=== PATIENT | female | born 1955 | race Caucasian/White ===

== ENCOUNTER 2017-06-01 19:23 | Emergency (ER) | payer OTHER ==
[~2017-06-01] VITALS: Ht 167.6 cm; Wt 101.2 kg
--- OUTSIDE RECORDS SUMMARY | ~2017-06-01 | XMS | Clinical Summary ---
Demographics + + + | Address | [address] | | | [place] [address] | + + + | Home Phone | | + + + | Preferred Language | Unknown | + + + | Marital Status | | + + + | Hindu Affiliation | NON | + + + | Race | White | + + + | Ethnic Group | Not or | + + + Author + + + | Author | [facility] | + + + | Organization | [facility] | + + + | Address | Unknown | + + + | Phone | Unavailable | + + + Support +------+ +---------+ + | Name | Relationship | Address | Phone | +------+ +---------+ + ECON | Unknown | | +------+ +---------+ + Care Team Providers + +------+ + | Care Shopping Centre Manager Name | Role | Phone | + +------+ + PP | Unavailable | + +------+ + Source Comments AYESHA is fully live on both [facility] and [facility] Allergies No Known Allergies Current Medications + + + +---------+------+------+-------+ | Prescription | Sig. | Disp. | Refills | Star | End | Statu | | | | | | t | Date | s | | | | | | Date | | | + + + +---------+------+------+-------+ | lisinopril 20 mg | Take 20 mg by mouth | | | | | Activ | | Oral Tablet | once daily. | | | | | e | + + + +---------+------+------+-------+ | THYROID,PORK | Take by mouth. | | | | | Activ | | (ARMOUR THYROID | | | | | | e | | ORAL) | | | | | | | + + + +---------+------+------+-------+ | aspirin 325 mg | Take 1 Tab by mouth | 30 Tab | 5 | 12/0 | | Activ | | Oral Tablet | once daily. Take 5 | | | 6/20 | | e | | | full days before | | | 10 | | | | | your procedure and | | | | | | | | the morning of your | | | | | | | | procedure. | | | | | | + + + +---------+------+------+-------+ | MULTIVITAMIN ORAL | Take by mouth. | | | | | Activ | | | | | | | | e | + + + +---------+------+------+-------+ | OMEGA-3 FATTY | Take by mouth. | | | | | Activ | | ACIDS (FISH OIL | | | | | | e | | ORAL) | | | | | | | + + + +---------+------+------+-------+ | LYSINE ORAL | Take by mouth. | | | | | Activ | | | | | | | | e | + + + +---------+------+------+-------+ | clopidogrel | Take 1 Tab by mouth | 30 Tab | 2 | 12/0 | | Activ | | (PLAVIX) 75 mg Oral | once daily. Take 600 | | | 8/20 | | e | | Tablet | mg (8 tablets) | | | 10 | | | | | today and 75 mg the | | | | | | | | morning of your | | | | | | | | procedure. | | | | | | + + + +---------+------+------+-------+ | oxyCODONE, | Take 1 Tab by mouth | 20 Tab | 0 | 12/0 | | Activ | | immediate release, 5 | every six hours as | | | 8/20 | | e | | mg Oral Tablet | needed. | | | 10 | | | + + + +---------+------+------+-------+ | acetaminophen 325 | Take 1-2 Tabs by | 30 Tab | 0 | 12/0 | | Activ | | mg Oral Tablet | mouth every four | | | 8/20 | | e | | | hours as needed. | | | 10 | | | + + + +---------+------+------+-------+ | dexamethasone 4 mg | Take by mouth. If | 5 Tab | 0 | 12/0 | | Activ | | Oral Tablet | significant headache | | | 8/20 | | e | | | pain occurs take 2 | | | 10 | | | | | tabs by mouth on day | | | | | | | | #1, 1.5 tabs by | | | | | | | | mouth on day #2, 1 | | | | | | | | tab by mouth on day | | | | | | | | #3, and 0.5 tab by | | | | | | | | mouth on day #4, | | | | | | | | then stop | | | | | | + + + +---------+------+------+-------+ Active Problems + + + | Problem | Noted Date | + + + | ERRONEOUS ENCOUNTER - NO DIAGNOSIS | 04/23/2010 | + + + | Bruit | 12/27/2009 | + + + Social History + + + +--------+------+ | Tobacco Use | Types | Packs/Day | Years | Date | | | | | Used | | + + + +--------+------+ | Current Every Day | Cigarettes | 0.5 | 40 | | | Smoker | | | | | + + + +--------+------+ + +---+---+---+ | Smokeless Tobacco: | | | | | Never Used | | | | + +---+---+---+ + + +---------+ + | Alcohol Use | Drinks/We | oz/Week | Comments | | | ek | | | + + +---------+ + | Yes | 4 | 2.0 | | | | Standard | | | | | drinks or | | | | | | | | | | equivalen | | | | | t | | | + + +---------+ + + + + | Sex Assigned at | Date Recorded | | | | + + + | Not on file | | + + + Last Filed Vital Signs + + + + | Vital Sign | Reading | Time Taken | + + + + | Blood Pressure | 126/75 | 05/30/2010 11:00 AM PST | + + + + | Pulse | 61 | 05/30/2010 11:00 AM PST | + + + + | Temperature | 36.9 C (98.4 F) | 05/30/2010 9:00 AM PST | + + + + | Respiratory Rate | 15 | 05/30/2010 11:00 AM PST | + + + + | Oxygen Saturation | 96% | 05/30/2010 11:00 AM PST | + + + + | Inhaled Oxygen | - | - | | Concentration | | | + + + + | Weight | 97.7 kg (215 lb 6.2 | 05/29/2010 12:00 PM PST | | | oz) | | + + + + | Height | 165.1 cm (5' 5") | 05/29/2010 7:00 AM PST | + + + + | Body Mass Index | 35.84 | 05/29/2010 12:00 PM PST | + + + + Plan of Treatment + + + + + | Health Maintenance | Due Date | Last Done | Comments | + + + + + | INFLUENZA VACCINE | | | | | (FLU SHOT) | 7 | | | + + + + + Results Not on filefrom Last 3 Months
[~2017-06-01 19:23] MED LIST: ARMOUR THYROID15 MG PO; ASPIR-TRIN325 MG PO; DAILY MULTIPLE1 EACH PO; FISH OIL 1,0001 EAC1 PO; LISINOPRIL20 MG PO; VITAMIN C100 MG PO; VITAMIN D1000 UNIT PO
[2017-06-01] MEDS ORDERED: PERCOCET 5-3251 EACH PO (22:17)
[2017-06-01] MEDS ORDERED: FLOMAX0.4 MG PO (22:17)
== END 2017-06-01 22:30 | disposition home or self-care (01) ==
LOC: ED 19:23
DX: N13.2 Hydronephrosis with renal and ureteral calculous obstruction (principal); E03.9 Hypothyroidism, unspecified; I10 Essential (primary) hypertension; Z90.710 Acquired absence of both cervix and uterus; Z90.49 Acquired absence of other specified parts of digestive tract; Z88.5 Allergy status to narcotic agent; Z79.82 Long term (current) use of aspirin; Z79.899 Other long term (current) drug therapy
CPT/HCPCS: 74176; 80053; 81001; 83036; 83690; 85025; 96361; 96374; 96375; 99284; J1885; J2405; J7030

== ENCOUNTER 2017-06-03 17:24 | Day surgery (SDC) | payer OTHER ==
[~2017-06-03] VITALS: Ht 167.6 cm; Wt 108.9 kg
--- NOTE | ~2017-06-03 | OR ---
[facility] [address], [place] [address] Draft DATE OF OPERATION: 06/03/2017 SURGEON: Winston Villarreal MD PREOPERATIVE DIAGNOSES: 1. Right ureterolithiasis. 2. Severe right-sided flank pain with nausea and vomiting. POSTOPERATIVE DIAGNOSES: 1. Right ureterolithiasis. 2. Severe right-sided flank pain with nausea and vomiting. NAMES OF PROCEDURES: 1. Diagnostic cystoscopy with right retrograde pyelogram. 2. Right semi-rigid ureteroscopy with laser lithotripsy and basket extraction of ureteral stone fragments. ANESTHESIA: General. ESTIMATED BLOOD LOSS: Minimal. COMPLICATIONS: None. SPECIMENS: Fragments of right ureteral calculus, sent to the lab for stone analysis. DRAINS: None. INDICATIONS FOR PROCEDURE: Ms. Peters is a very pleasant 62-year-old female with no previous history of nephrolithiasis, who presented to her primary care physician's office with a 2 to 3-day history of severe right-sided flank pain, nausea, and vomiting. She had been seen in the emergency department on June 01, where she was found to have a 5 mm distal right ureteral calculus with associated moderate hydronephrosis. She presented to clinic today in tears and still experiencing severe right-sided flank pain with nausea and vomiting. She was unable to tolerate p.o. intake. However, she denied any fevers or chills. After PATIENT NAME: ZAFAR PETERS OPERATIVE REPORT DATE OF : 59 PHYSICIAN: WINSTON VILLARREAL MD REPORT #: [id number] REPORT IS CONFIDENTIAL AND NOT TO BE RELEASED WITHOUT AUTHORIZATION [facility] [address], [place] [address] Draft discussing her various treatment options, the patient agreed to undergo semi-urgent right ureteroscopy, laser lithotripsy, and basket extraction of her stone. After discussion of the risks and benefits of the procedure, the patient agreed to proceed. FINDINGS: 1. On cystoscopy, there was no evidence of any suspicious masses, lesions, or stones. Bilateral ureteral orifices are in their normal anatomic location. 2. Right retrograde pyelogram revealed a round filling defect in the distal right ureter, consistent with the patient's known 5 mm stone. 3. Semi-rigid ureteroscopy was performed, where the stone was located in the distal right ureter; it was fragmented using a frequency of 8 hertz and a power of 0.8 joules. The stone fragmented into four pieces, which were all extracted from the ureter without difficulty. DESCRIPTION OF PROCEDURE: After informed consent was obtained, the patient was taken back to the operating room. She was transferred from the [facility] to the operative room table, where general anesthesia was induced. She was placed in the dorsal lithotomy position and genitalia prepped and draped in standard sterile fashion. Using a 30 degree lens on 23-Slovenian introducer, a rigid cystoscope was inserted through the urethra into her bladder under direct visualization. Pain endoscopic views of the bladder were then obtained. Please see above findings. Attention was turned to the right ureteral orifice. A cone-tipped catheter was advanced to the right ureteral orifice and a right retrograde pyelogram was performed. Please see above findings. I then advanced a semi-rigid ureteroscope through the urethra into the bladder and up into the right distal ureter. Right diagnostic ureteroscopy was then performed. I was able to see the stone fairly immediately and it was fragmented into four smaller fragments using the holmium laser as described above. All four fragments were then extracted from the ureter and temporarily placed within the bladder, where later they were extracted from the bladder via the cystoscope. Once I was satisfied that all the stone fragments had been removed. I removed the ureteral scope and reinserted the cystoscope, where as stated above the stone fragments were extracted. The cystoscope was then removed and the procedure was terminated. The patient tolerated the procedure well without any complication. She will now be transferred to the postanesthesia care unit in stable condition. DISPOSITION: Zafar will be discharged to home later this evening in stable condition. I discussed the details of her surgery with her and answered all of his questions. I explained to him that she does not have an indwelling stent and will therefore, not require stent removal in the future. However, she will be asked to contact the clinic to make a followup appointment in approximately 2 to 3 weeks to discuss her stone analysis results. She will be sent home today with Bactrim double strength one tab p.o. b.i.d. for a total PATIENT NAME: ZAFAR PETERS FULTON OPERATIVE REPORT DATE OF : 59 PHYSICIAN: WINSTON VILLARREAL MD REPORT #: [id number] REPORT IS CONFIDENTIAL AND NOT TO BE RELEASED WITHOUT AUTHORIZATION [address] [address] Draft of 5 days. MD JOSELITO Steele/ALINE /[id number] PATIENT NAME: ZAFAR PETERS OPERATIVE REPORT DATE OF : 59 PHYSICIAN: WINSTON VILLARREAL MD REPORT #: [id number] REPORT IS CONFIDENTIAL AND NOT TO BE RELEASED WITHOUT AUTHORIZATION
[~2017-06-03 17:24] MED LIST changes: +FLOMAX0.4 MG PO; +PERCOCET 5-3251 EACH PO
--- NOTE | 2017-06-03 19:14 | NUR ---
06/03/171913 Abbey Carpenter 190-PATIENT ARRIVED TO PACU ON 6L MASK O2 SAT 100% PATIENT REACTIVE TO VOICE. NO DRAINAGE TO VAGINAL AREA. GLUCOSE 127. SR.
--- NOTE | 2017-06-03 19:50 | NUR ---
PT ARRIVED TO FLOOR VIA STRETCHER. ALERT AND ORIENTED X4. ABLE TO TRANSFER SELF FROM STRETCHER TO BED INDEPENANTLY. NO NAUSEA. NO PAIN AT THIS TIME. GAVE WATER AND JELLO. VITALS STABLE. IN ROOM. CALL LIGHT IN REACH. NO FURTHER NEEDS.
--- NOTE | 2017-06-03 21:00 | NUR ---
PT AND ESCORTED TO THEIR TRUCK VIA WHEELCHAIR. PRIOR TO DISCHARGE, PT VOIDED WITHOUT DIFFICULTIES. DRINKING WATER WITH NO NAUSEA. WENT OVER THE DISCHARGE INSTRUCTIONS, SENT ANTIBIOTIC PERSCRIPTION WITH . STATES THAT HE WILL GET THAT FILLED TOMORROW. IV DC'D INTACT.
== END 2017-06-03 20:47 | disposition home or self-care (01) ==
LOC: DS 17:24 → MS 19:57 → DS 20:47
PROVIDERS: Urology
PROC: 0TF68ZZ Fragmentation in Right Ureter, Via Natural or Artificial Opening Endoscopic (ICD-10-PCS; principal; 2017-06-03 17:30)
PROC: 0T768DZ Dilation of Right Ureter with Intraluminal Device, Via Natural or Artificial Opening Endoscopic (ICD-10-PCS; 2017-06-03 17:30)
DX: N13.2 Hydronephrosis with renal and ureteral calculous obstruction (principal); I10 Essential (primary) hypertension; E03.9 Hypothyroidism, unspecified; J44.9 Chronic obstructive pulmonary disease, unspecified; R73.03 Prediabetes; F90.9 Attention-deficit hyperactivity disorder, unspecified type; Z90.49 Acquired absence of other specified parts of digestive tract; Z79.899 Other long term (current) drug therapy; Z79.82 Long term (current) use of aspirin; Z90.710 Acquired absence of both cervix and uterus; Z98.890 Other specified postprocedural states; Z88.5 Allergy status to narcotic agent; Z88.2 Allergy status to sulfonamides
CPT/HCPCS: 00910; 74420; 82365; J0696; J1100; J1885; J2250; J2405; J2704; J3010; J7120; Q9967